=== PATIENT | male | born 1975 | race Caucasian/White ===

== ENCOUNTER 2019-04-21 20:31 | Emergency (ER) | payer OTHER ==
[~2019-04-21] VITALS: Ht 175.3 cm; Wt 81.6 kg
[2019-04-21 20:44] VITALS: BP_SYST 154
[2019-04-21 22:09] VITALS: BP_SYST 149
== END 2019-04-21 22:09 | disposition home or self-care (01) ==
LOC: SED 20:31
DX: R05 Cough (principal)
CPT/HCPCS: 71045; 99283

== ENCOUNTER 2022-10-25 20:05 | Emergency (ER) | payer OTHER ==
[~2022-10-25] VITALS: Ht 177.8 cm; Wt 90.7 kg
[2022-10-25 20:31] VITALS: BP_SYST 168; PULSE 91; RESP 17; TEMP 97.2; O2SAT 95
[2022-10-25] MEDS ORDERED: KETOROLAC TROMETHAMINE 30 MG VIAL IM ONE (23:15)
[2022-10-25] MEDS ORDERED: LIDOCAINE PATCH 5% 1 EA TP ONE (23:15)
[2022-10-25] MEDS ORDERED: IBUP-1970 PO (23:18)
[2022-10-25] MEDS ORDERED: ACET-2634 PO (23:18)
[2022-10-25] MEDS ORDERED: CYCL10TA24 PO (23:18)
[2022-10-25 23:47] VITALS: BP_SYST 152; PULSE 89; RESP 17; TEMP 97.9; O2SAT 95
== END 2022-10-25 23:47 | disposition home or self-care (01) ==
LOC: SED 20:05
DX: S39.012A Strain of muscle, fascia and tendon of lower back, initial encounter (principal); Z79.899 Other long term (current) drug therapy; X50.0XXA Overexertion from strenuous movement or load, initial encounter; Y93.89 Activity, other specified; Y92.89 Other specified places as the place of occurrence of the external cause; Y99.8 Other external cause status
CPT/HCPCS: 99283; 96372; J1885